=== PATIENT | female | born 1975 | race African-American/Black ===

== ENCOUNTER 2016-05-19 22:45 | Emergency (ER) | payer MEDICAID, OTHER ==
[~2016-05-19] VITALS: Ht 177.8 cm; Wt 120.0 kg
[~2016-05-19 22:45] MED LIST: CYCL5TAB PO; MELO7.5T PO; OXYC-360 PO; VICO7.5T PO
[2016-05-19 22:48] VITALS: BP 167/98; PULSE 103; RESP 24; O2SAT 100
--- NOTE | 2016-05-19 22:50 | PD ---
HPI Chief Complaint: asthma Time Seen by Provider: 22:48 Travel History International Travel<30 days: No Contact w/Intl Traveler<30days: No History of Present Illness HPI This is a 40-year-old female who presents to the emergency department with wheezing in the setting of a history of asthma. She says that she became short of breath at work, severe, constant, associated with a productive cough with yellow sputum. She denies any fevers or chills. She is his been having shortness of breath and wheezing intermittently for months. She had the ambulance come to her work 2 weeks ago for similar symptoms but she didn't come with them at that time. She has been having Trouble getting into her primary care physician because they changed her Medicaid. PFS Past Medical History Diminished Hearing: No Headaches: Yes Hypertension: Yes : 2 Para: 1 Miscarriage: 1 : 0 Past Surgical History Section: Yes (2001) Gynecologic Surgery: Yes ( 2001) Social History Alcohol Use: Yes ([facility]) Tobacco Use: No Substance Use: No Allergies-Medications (Allergen,Severity, Reaction): Coded Allergies: No Known Allergies (Verified , 05/19/16) Reported Meds & Prescriptions Reported Meds & Active Scripts Active Reported Albuterol Neb (Albuterol Sulfate) 2.5 Mg/3 Ml Neb 2.5 Mg NEB Q4HR NEB PRN Review of Systems Except as stated in HPI: all other systems reviewed are Neg Physical Exam Narrative GENERAL: Well-nourished, well-developed patient. SKIN: Warm and dry. HEAD: Normocephalic. EYES: No scleral icterus. No injection or drainage. NECK: Supple, trachea midline. CARDIOVASCULAR: Regular rate and rhythm without murmurs. RESPIRATORY: Diffuse wheezing, increased work of breathing, speaking 3-4 word sentences GASTROINTESTINAL: Abdomen soft, non-tender, nondistended. MUSCULOSKELETAL: No cyanosis, or edema. Data Data Last Documented VS Vital Signs Date Time Temp Pulse Resp B/P Pulse Ox O2 Delivery O2 Flow Rate FiO2 05/20/16 00:25 99 22 143/86 96 Room Air Orders Methylprednisolone So Succ Inj (Solumedr (05/19/16 23:00) Albuterol Neb (Albuterol Neb) (05/19/16 23:00) MDM Medical Decision Making Medical Screen Exam Complete: Yes Emergency Medical Condition: Yes Interpretation(s) Tachycardic, no hypoxia, tachypnea Differential Diagnosis Acute asthma exacerbation, pneumonia, viral syndrome, influenza Narrative Course This is a 40-year-old female with a history of asthma who presents to the emergency department with increasing shortness of breath that started today at work. She's had more frequent asthma exacerbations over the past month. She used to be on inhaled steroid but she's not anymore. She was placed on a monitor and an IV was established. She was given serial albuterol treatments and IV steroids. She feels much better. She continues to wheeze somewhat but is not hypoxic and her work of breathing has improved. I think it's reasonable to restart her on an inhaled steroid. Patient also will be discharged with prednisone. Diagnosis Primary Impression: Acute asthma exacerbation Qualified Code: J45.41 - Moderate persistent asthma with acute exacerbation Patient Instructions: General Instructions Additional Instructions: If you develop severe shortness of breath, chest pain, or difficulty breathing return to the emergency department. Use albuterol every 4 hours for the next 2 days. Then use as needed for wheezing. Complete your course of steroids. Follow up with your primary care physician in 2-3 days if your symptoms have not improved. Med/Other Pt SpecificInfo: Prescription(s) given Scripts Prednisone 20 Mg Tab40 Mg PO DAILY 4 Days Prov:Ana Catalan MD 05/20/16 Fluticasone 12 GM Inh (Flovent Hfa 12 GM Inh)110 Mcg/Act Inh1 Puff INH BID #1 INHALER Ref 0 Prov:Ana Catalan MD 05/20/16 Disposition: 01 DISCHARGE HOME Condition: Stable Ana Catalan MD May 19, 2016 22:50
[2016-05-19] MEDS ORDERED: ALBU0.08 NEB (22:56)
[2016-05-19] MEDS: RESP: ALBUTEROL 2.5 MG/3 ML NEB (SCH) INH ×2 (22:59→23:00)
[2016-05-19] MEDS ORDERED: methylPREDNISolone SOD SUCC 125 MG/2 ML VIAL IV PUSH ONE (23:00)
[2016-05-20 00:25] VITALS: BP 143/86; PULSE 99; RESP 22; TEMP 97.4; O2SAT 96
[2016-05-20] MEDS ORDERED: PRED20 PO (00:34)
[2016-05-20] MEDS ORDERED: FLUTI110I INH (00:34)
== END 2016-05-20 00:51 | disposition home or self-care (01) ==
LOC: NEPC 22:45
DX: J45.41 Moderate persistent asthma with (acute) exacerbation (principal); R05 Cough; I10 Essential (primary) hypertension
CPT/HCPCS: 94640; 94664; 96374; 99283; J2930; J7613

== ENCOUNTER 2016-12-11 13:52 | Emergency (ER) | payer SELFPAY ==
[~2016-12-11] VITALS: Ht 177.8 cm; Wt 126.0 kg
[~2016-12-11 13:52] MED LIST changes: +ALBU0.08 NEB; -CYCL5TAB PO; +FLUTI110I INH; -MELO7.5T PO; -OXYC-360 PO; +PRED20 PO; -VICO7.5T PO
[2016-12-11 13:54] VITALS: BP 144/98; PULSE 86; RESP 20; TEMP 97.7; O2SAT 98
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
== END 2016-12-11 14:45 | disposition left against medical advice (07) ==
LOC: NED 13:52
DX: R07.9 Chest pain, unspecified (principal); Z53.21 Procedure and treatment not carried out due to patient leaving prior to being seen by health care provider
CPT/HCPCS: 99281

== ENCOUNTER 2017-05-15 19:17 | Emergency (ER) | payer SELFPAY ==
[~2017-05-15] VITALS: Ht 177.8 cm; Wt 125.5 kg
[2017-05-15 19:18] VITALS: BP 186/112; PULSE 60; RESP 14; TEMP 97.9; O2SAT 98
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
== END 2017-05-15 21:30 | disposition left against medical advice (07) ==
LOC: NED 19:17
DX: M54.2 Cervicalgia (principal); R42 Dizziness and giddiness; R06.02 Shortness of breath; Z53.21 Procedure and treatment not carried out due to patient leaving prior to being seen by health care provider
CPT/HCPCS: 99281